=== PATIENT | female | born 1970 | race African-American/Black ===

== ENCOUNTER 2019-05-01 | Emergency (ER) | payer SELFPAY ==
[~2019-05-01] MED LIST: AMLODIPINE5 MG PO; ASPIRIN LOW DOS81 M2 PO; CALCIUM +D PO; LOSARTAN/HCT1 TA1 PO; MAGNESIUM-OX400 MG PO; METFORMIN500 MG PO; MULTI VIT PO; NALTREXONE50 MG PO; UNK BP MED; VITAMIN D50000 UN1 PO
[2019-05-01] MEDS ORDERED: OMEPRAZOLE DR40 MG PO (10:15)
[2019-05-01 11:51] LABS: ANION GAP 23 (6-22 (CALC)); BUN 11 mg/dL (7-17); BUN/CREATININE RATIO 25 (12-20 (CALC)); CARBON DIOXIDE 20 mmol/l (22-30); CHLORIDE 101 mmol/l (95-108); CREATININE 0.4 mg/dL (0.5-1.0); GFR > 60 ML/MIN (>=60 (CALC)); GFR FOR AFR.AMER. > 60 ML/MIN (>=60 (CALC)); POTASSIUM 4.3 mmol/l (3.5-5.1); SODIUM 140 mmol/l (137-146)
[2019-05-01 12:16] LABS: HEMATOCRIT 39.8 % (37.0-47.0); HEMOGLOBIN 13.2 g/dl (12.0-16.0); IMMATURE GRANULOCYTES 0.4 % (0.0-5.0); MEAN CELL VOLUME 94.1 fL CALC (80.0-100.0); MEAN CORPUSCULAR HGB 31.2 pG CALC (26.0-32.0); MEAN CORPUSCULAR HGB CONC 33.2 g/L CALC (32.0-36.0); NEUT# 3.81 thou/uL (2.00-7.15); RED BLOOD COUNT 4.23 mill/uL (4.20-5.60); RED CELL DISTRI WIDTH 13.5 % (11.5-15.5)
[2019-05-01] MEDS ORDERED: DOXYCYCL HYC100 M4 PO (13:18)
== END 2019-05-01 14:01 | disposition home or self-care (01) | DRG 156 ==
PROVIDERS: Family Medicine
PROC: 0HQ1XZZ Repair Face Skin, External Approach (ICD-10-PCS; principal; 2019-05-01)
DX: S02.2XXA Fracture of nasal bones, initial encounter for closed fracture (principal); S01.511A Laceration without foreign body of lip, initial encounter; R07.9 Chest pain, unspecified; I10 Essential (primary) hypertension; E11.40 Type 2 diabetes mellitus with diabetic neuropathy, unspecified; F17.210 Nicotine dependence, cigarettes, uncomplicated; W01.0XXA Fall on same level from slipping, tripping and stumbling without subsequent striking against object, initial encounter; Z79.84 Long term (current) use of oral hypoglycemic drugs

== ENCOUNTER 2019-06-21 09:19 | Inpatient (IN) | payer BC ==
[~2019-06-21] VITALS: Ht 177.8 cm; Wt 61.0 kg
[~2019-06-21 09:19] MED LIST changes: +DOXYCYCL HYC100 M4 PO; +OMEPRAZOLE DR40 MG PO
--- NOTE | 2019-06-21 09:23 | NUR ---
PT TO ROOM VIA [facility] FOR BEDSIDE TRIAGE.
--- NOTE | 2019-06-21 09:35 | NUR ---
PT REWTING STATES THAT SHE STARTED HAVING TROUBLE ABOUT A MONTH AGO AND IT CONTINUES SHE HAS HAD N/V WITH DIFFUSE ABD PAIN, STATES SHE HASN'T EATEN IN ABOUT 2 WEEKS, WITH C/O EMESIS AFTER EATING STATES HE TRIES TO DRINK WATER FREQUENTLY BUT EVEN THAT COMES UP SOMETIMES, CALL QUEEN WITHIN REACH, IV ACCESS OBTAINED AND LAB WORK DRAWN, WILL CONTINUE TO MONITOR.
[2019-06-21 10:05] LABS: HEMATOCRIT 35.6 % (37.0-47.0); HEMOGLOBIN 12.1 g/dl (12.0-16.0); IMMATURE GRANULOCYTES 0.5 % (0.0-5.0); MEAN CELL VOLUME 90.8 fL CALC (80.0-100.0); MEAN CORPUSCULAR HGB 30.9 pG CALC (26.0-32.0); NEUT# 4.17 thou/uL (2.00-7.15); RED BLOOD COUNT 3.92 mill/uL (4.20-5.60); RED CELL DISTRI WIDTH 13.4 % (11.5-15.5)
--- NOTE | 2019-06-21 10:13 | NUR ---
PT RESTING, IV ACCESS OBTAINED EARLIER, MEDICATED FOR NAUSEA ORDERED, WARM BLANKETS PROVIDED AND LIGHTS DIMMED PER PT REQUEST, CALL QUEEN IN HAND, WILL CONTINUE TO MONITOR.
[2019-06-21 10:36] LABS: ALBUMIN 4.6 g/dL (3.2-5.0); BUN 26 mg/dL (7-17); BUN/CREATININE RATIO 36 (12-20 (CALC)); CREATININE 0.7 mg/dL (0.5-1.0); GFR > 60 ML/MIN (>=60 (CALC)); GFR FOR AFR.AMER. > 60 ML/MIN (>=60 (CALC)); LIPASE 1000 u/l (23-300); SODIUM 134 mmol/l (137-146); TOTAL PROTEIN 7.8 g/dL (6.3-8.2)
[2019-06-21 10:43] LABS: ALKALINE PHOSPHATASE 122 u/l (38-126); ANION GAP 24 (6-22 (CALC)); CARBON DIOXIDE 25 mmol/l (22-30); CHLORIDE 88 mmol/l (95-108); POTASSIUM 3.4 mmol/l (3.5-5.1); SGOT/AST 183 u/l (14-36)
[2019-06-21 10:49] LABS: URINE BLOOD DIPSTICK NEGATIVE (NEGATIVE); URINE COLOR YELLOW; URINE GLUCOSE - DIPSTICK NEGATIVE (NEGATIVE); URINE KETONE >=80 mg/dL (NEGATIVE); URINE LEUK ESTERASE NEGATIVE (NEGATIVE); URINE NITRITE - DIPSTICK NEGATIVE (Negative); URINE PROTEIN - DIPSTICK 100 mg/dL (NEG-TRACE); URINE SPECIFIC GRAVITY >=1.030
[2019-06-21 10:54] LABS: URINE BILIRUBIN - DIPSTICK MODERATE (NEGATIVE)
[2019-06-21 11:04] LABS: URINE SQUAMOUS EPITHELIAL CELL FEW EPI/hpf (0-FEW)
--- NOTE | 2019-06-21 11:32 | NUR ---
PT AMBULATORY TO BATHROOM TO PROVIDE URINE. STATES PAIN TO LUQ,
--- NOTE | 2019-06-21 12:18 | NUR ---
INITIATED IVF, PT TOLERATING WELL. VSS. EDP UPDATED ON PAIN.
--- NOTE | 2019-06-21 13:18 | NUR ---
PT RESTING MORE COMFORTABLE IN NO DISTRESS. VSS. DENIES NAUSEA
--- NOTE | 2019-06-21 14:30 | NUR ---
PT SITTING UP TALKING TO SPOUSE AT BEDSIDE, PT IN NO DISTRESS.
--- NOTE | 2019-06-21 14:49 | NUR ---
PT TRANSPORTED TO [place] VIA WC IN NO DISTRESS
[2019-06-21 15:05] VITALS: BP 135/84
--- NOTE | 2019-06-21 15:30 | NUR ---
REPORT RECEIVED FROM KENNETH IN ED, PT ARRIVED ON UNIT @ 1510 VIA WC AND TRANSFERRED TO BED, ALERT AND ORIENTED X 4, C/O ABD PAIN @ 07/14. ORIENTED TO ROOM AND CALL QUEEN, SETTLED IN BED, WILL CONTINUE TO MONITOR.
[2019-06-21 18:27] VITALS: BP 124/77
--- NOTE | 2019-06-21 19:28 | NUR ---
REPORT FROM CLAUDIA CLAY. PT RESTING IN BED. NO APPARENT DISTRESS NOTED. PT STATES ABD PAIN STILL PRESENT. DENIES ANY NAUSEA AT THIS TIME. IV TO LAC WITH IV FLUIDS INFUSING. PT DENIES ANY CURRENT WANTS OR NEEDS. DISCUSSED POC. PT VERBALIZED UNDERSTANDING. CALL LIGHT WITHIN REACH. WILL CONTINUE TO MONITOR.
--- NOTE | 2019-06-21 23:52 | NUR ---
PT RESTING IN BED WATCHING TV. PT DENIES ANY PAIN OR DISCOMFORT. NO APPARENT DISTRESS NOTED. REMAINS NPO. IV FLUIDS INFUSING WITHOUT DIFFICULTY. CALL LIGHT WITHIN REACH. WILL CONTINUE TO MONITOR.
[2019-06-22 03:27] VITALS: BP 144/86
--- NOTE | 2019-06-22 03:30 | NUR ---
PT RESTING IN BED WITH EYES CLOSED. NO APPARENT DISTRESS NOTED. PT DENIES ANY PAIN OR DISCOMFORT AT THIS TIME. CALL LIGHT WITHIN REACH. WILL CONTINUE TO MONITOR.
[2019-06-22 05:12] LABS: HEMOGLOBIN 11.8 g/dl (12.0-16.0); IMMATURE GRANULOCYTES 0.2 % (0.0-5.0); MEAN CELL VOLUME 93.3 fL CALC (80.0-100.0); MEAN CORPUSCULAR HGB 30.6 pG CALC (26.0-32.0); MEAN CORPUSCULAR HGB CONC 32.8 g/dL CAL (32.0-36.0); NEUT# 2.98 thou/uL (2.00-7.15); RED BLOOD COUNT 3.86 mill/uL (4.20-5.60); RED CELL DISTRI WIDTH 13.4 % (11.5-15.5)
[2019-06-22 05:41] LABS: ALKALINE PHOSPHATASE 92 u/l (38-126); BILIRUBIN, TOTAL 0.9 mg/dL (0.0-1.4); BUN 19 mg/dL (7-17); BUN/CREATININE RATIO 38 (12-20 (CALC)); CARBON DIOXIDE 21 mmol/l (22-30); CREATININE 0.5 mg/dL (0.5-1.0); GFR > 60 ML/MIN (>=60 (CALC)); GFR FOR AFR.AMER. > 60 ML/MIN (>=60 (CALC)); LIPASE 945 u/l (23-300); POTASSIUM 3.3 mmol/l (3.5-5.1); SGOT/AST 163 u/l (14-36); SODIUM 137 mmol/l (137-146); TOTAL PROTEIN 6.3 g/dL (6.3-8.2)
[2019-06-22 05:42] LABS: ALBUMIN 3.6 g/dL (3.2-5.0); ANION GAP 18 (6-22 (CALC)); CHLORIDE 101 mmol/l (95-108)
[2019-06-22 08:00] VITALS: BP 132/78
--- NOTE | 2019-06-22 09:00 | NUR ---
PT SEEN AWAKE, ALERT, ORIENTED X 3. LUNGS CLEAR, RA. ABDOMEN TENDER, LAST BM ON 15, BUT PT STATES LITTLE INTAKE IN PAST FEW DAYS. BOWEL SOUNDS HYPOACTIVE. PT REMAINS NPO.
--- NOTE | 2019-06-22 12:00 | NUR ---
PT RECEIVED MAGNESIUM THIS MORNING PER LEVEL OF 1.1. ALSO, POTASSIUM 40 MEQ PROVIDED PO. PT SEEN BY DR SMART, WILL HAVE U/S ABDOMEN IN AM. NO DISTRESS NOTED, NO COMPLAINTS HEARD.
[2019-06-22 16:00] VITALS: BP 122/79
--- NOTE | 2019-06-22 19:00 | NUR ---
REPORT FROM PRABHAKAR CLAY. PT RESTING IN BED. NO APPARENT DISTRESS NOTED. PT DENIES ANY PAIN OR NAUSEA AT THIS TIME. IV TO LAC WITH IV FLUIDS INFUSING. PT DENIES ANY CURRENT WANTS OR NEEDS. DISCUSSED POC. PT VERBALIZED UNDERSTANDING. CALL LIGHT WITHIN REACH. WILL CONTINUE TO MONITOR.
[2019-06-22 19:21] VITALS: BP 130/82
--- NOTE | 2019-06-22 19:45 | NUR ---
PT UNHOOKED FROM IV FLUIDS AND IV SITE COVERED AND PT SET UP FOR SHOWER. PT INSTRUCTED TO CALL FOR ASSISTANCE IF NEEDED.
--- NOTE | 2019-06-23 00:03 | NUR ---
PT RESTING IN BED WITH EYES CLOSED. WAKES EASILY. NO APPARENT DISTRESS NOTED. PT DENIES ANY PAIN OR NAUSEA. NPO AT THIS TIME. CALL LIGHT WITHIN REACH. WILL CONTINUE TO MONITOR.
--- NOTE | 2019-06-23 04:25 | NUR ---
PT RESTING IN BED WITH EYES CLOSED. NO APPARENT DISTRESS NOTED. CALL LIGHT WITHIN REACH. WILL CONTINUE TO MONITOR.
[2019-06-23 05:03] VITALS: BP 143/85
[2019-06-23 05:18] LABS: HEMATOCRIT 32.2 % (37.0-47.0); HEMOGLOBIN 10.7 g/dl (12.0-16.0); MEAN CELL VOLUME 92.5 fL CALC (80.0-100.0); MEAN CORPUSCULAR HGB 30.7 pG CALC (26.0-32.0); MEAN CORPUSCULAR HGB CONC 33.2 g/dL CAL (32.0-36.0); RED BLOOD COUNT 3.48 mill/uL (4.20-5.60); RED CELL DISTRI WIDTH 13.4 % (11.5-15.5)
[2019-06-23 05:27] LABS: ALKALINE PHOSPHATASE 79 u/l (38-126); ANION GAP 10 (6-22 (CALC)); BILIRUBIN, TOTAL 0.7 mg/dL (0.0-1.4); BUN 10 mg/dL (7-17); BUN/CREATININE RATIO 21 (12-20 (CALC)); CARBON DIOXIDE 23 mmol/l (22-30); CHLORIDE 106 mmol/l (95-108); CREATININE 0.5 mg/dL (0.5-1.0); GFR > 60 ML/MIN (>=60 (CALC)); GFR FOR AFR.AMER. > 60 ML/MIN (>=60 (CALC)); MAGNESIUM 1.2 mg/dL (1.6-2.3); POTASSIUM 3.5 mmol/l (3.5-5.1); SGOT/AST 127 u/l (14-36); SODIUM 136 mmol/l (137-146); TOTAL PROTEIN 5.8 g/dL (6.3-8.2)
[2019-06-23 08:00] VITALS: BP 139/89
--- NOTE | 2019-06-23 09:00 | NUR ---
PT AWAKE, ALERT, ORIENTED X 3. PT DOES HAVE CONTINUED NAUSEA, MEDICATED WITH ZOFRAN THIS MORNING. LUNGS CLEAR, RA. ABDOMEN TENDER TO RUQ. PEDAL EDEMA NOTED AT 1+, PALPABLE PULSES.
--- NOTE | 2019-06-23 13:00 | NUR ---
PT TO U/S AT THIS TIME. PT CONTINUES WITH IVF AND ALSO NOW WITH MAGNESIUM BOLUS. PT WITHOUT COMPLAINTS SHE RESTS IN THE BED.
[2019-06-23 15:15] VITALS: BP 130/85
--- NOTE | 2019-06-23 17:30 | NUR ---
PT HAS BEEN TO ULTRASOUND AND BACK WITHOUT INCIDENT. PT HAS HAD UNEVENTFUL AFTERNOON, AT REST IN THE BED, NO ACUTE DISTRESS.
--- NOTE | 2019-06-23 19:35 | NUR ---
REPORT FROM PRABHAKAR CLAY. PT RESTING IN BED. NO APPARENT DISTRESS NOTED. PT C/O ABD AND BACK PAIN 5/10 AND NAUSEA. IV TO LAC WITH IV FLUIDS INFUSING. PT DENIES ANY CURRENT WANTS OR NEEDS. DISCUSSED POC. PT VERBALIZED UNDERSTANDING. WILL MEDICATE ORDERED. CALL LIGHT WITHIN REACH. WILL CONTINUE TO MONITOR.
[2019-06-23 19:42] VITALS: BP 143/92
--- NOTE | 2019-06-23 23:39 | NUR ---
PT RESTING IN BED WITH EYES CLOSED. NO APPARENT DISTRESS NOTED. CALL LIGHT WITHIN REACH. WILL CONTINUE TO MONITOR.
--- NOTE | 2019-06-24 03:58 | NUR ---
PT RESTING IN BED WITH EYES CLOSED. NO APPARENT DISTRESS NOTED. CALL LIGHT WITHIN REACH. WILL CONTINUE TO MONITOR.
[2019-06-24 04:31] VITALS: BP 144/90
[2019-06-24 05:13] LABS: HEMATOCRIT 31.3 % (37.0-47.0); HEMOGLOBIN 10.5 g/dl (12.0-16.0); IMMATURE GRANULOCYTES 0.4 % (0.0-5.0); MEAN CELL VOLUME 91.8 fL CALC (80.0-100.0); MEAN CORPUSCULAR HGB 30.8 pG CALC (26.0-32.0); MEAN CORPUSCULAR HGB CONC 33.5 g/dL CAL (32.0-36.0); NEUT# 3.55 thou/uL (2.00-7.15); RED BLOOD COUNT 3.41 mill/uL (4.20-5.60); RED CELL DISTRI WIDTH 13.3 % (11.5-15.5)
[2019-06-24 05:29] LABS: ALBUMIN 3.1 g/dL (3.2-5.0); ALKALINE PHOSPHATASE 82 u/l (38-126); ANION GAP 13 (6-22 (CALC)); BILIRUBIN, TOTAL 0.6 mg/dL (0.0-1.4); BUN 5 mg/dL (7-17); BUN/CREATININE RATIO 10 (12-20 (CALC)); CALCULATED LDLCHOLESTEROL 73 mg/dL (62-129 (CALC)); CARBON DIOXIDE 21 mmol/l (22-30); CHLORIDE 104 mmol/l (95-108); CHOLESTEROL HDL RATIO 2.5 (<4.4 (CALC)); CREATININE 0.5 mg/dL (0.5-1.0); GFR > 60 ML/MIN (>=60 (CALC)); GFR FOR AFR.AMER. > 60 ML/MIN (>=60 (CALC)); HDL CHOLESTEROL 61 mg/dL (>=40); LIPASE 373 u/l (23-300); MAGNESIUM 1.3 mg/dL (1.6-2.3); POTASSIUM 3.1 mmol/l (3.5-5.1); SGOT/AST 109 u/l (14-36); SODIUM 136 mmol/l (137-146); TOTAL CHOLESTEROL 150 mg/dl (0-199); TOTAL PROTEIN 5.8 g/dL (6.3-8.2); TOTAL TRIGLYCERIDES 83 mg/dl (30-149); VLDL CHOLESTROL 17 mg/dl (1-41 (CALC))
[2019-06-24 08:00] VITALS: BP 134/92
--- NOTE | 2019-06-24 09:00 | NUR ---
PT AWAKE, ALERT, DID NOT EAT MUCH BREAKFAST PER NOT WHAT SHE ORDERED. IV INFILTRATED, TO RESTART.
--- NOTE | 2019-06-24 12:22 | NUR ---
NEW IV STARTED RAC BY JM CLAY, IV INFUSES NORMALLY. PT STATES THAT SHE STILL FEELS A BIT QUEASY, EMESIS BAG PROVIDED.
[2019-06-24 15:28] VITALS: BP 116/76
--- NOTE | 2019-06-24 18:06 | NUR ---
PT CONTINUES AMBULATORY IN ROOM WITHOUT ASSIST, NO PAIN ISSUES ALTHOUGH ABDOMEN IS TENDER. NO DISTRESS NOTED.
[2019-06-24 18:49] VITALS: BP 132/82
--- NOTE | 2019-06-24 19:01 | NUR ---
REPORT FROM PRABHAKAR CLAY. PT RESTING IN BED. NO APPARENT DISTRESS NOTED. PT C/O ABD AND BACK PAIN 4/10 AND NAUSEA. IV TO RAC WITH IV FLUIDS INFUSING. PT DENIES ANY CURRENT WANTS OR NEEDS. DISCUSSED POC. PT VERBALIZED UNDERSTANDING. WILL MEDICATE ORDERED. CALL LIGHT WITHIN REACH. WILL CONTINUE TO MONITOR.
--- NOTE | 2019-06-24 23:15 | NUR ---
PT RESTING IN BED WITH EYES CLOSED. NO APPARENT DISTRESS NOTED. CALL LIGHT WITHIN REACH. WILL CONTINUE TO MONITOR.
[2019-06-25 04:56] LABS: HEMATOCRIT 29.9 % (37.0-47.0); HEMOGLOBIN 10.3 g/dl (12.0-16.0); MEAN CELL VOLUME 90.1 fL CALC (80.0-100.0); MEAN CORPUSCULAR HGB CONC 34.4 g/dL CAL (32.0-36.0); RED BLOOD COUNT 3.32 mill/uL (4.20-5.60); RED CELL DISTRI WIDTH 13.5 % (11.5-15.5)
[2019-06-25 05:11] VITALS: BP 135/79
[2019-06-25 05:11] LABS: ALBUMIN 2.9 g/dL (3.2-5.0); ALKALINE PHOSPHATASE 85 u/l (38-126); ANION GAP 10 (6-22 (CALC)); BILIRUBIN, TOTAL 0.5 mg/dL (0.0-1.4); BUN 3 mg/dL (7-17); BUN/CREATININE RATIO 6 (12-20 (CALC)); CARBON DIOXIDE 24 mmol/l (22-30); CHLORIDE 105 mmol/l (95-108); CREATININE 0.5 mg/dL (0.5-1.0); GFR > 60 ML/MIN (>=60 (CALC)); GFR FOR AFR.AMER. > 60 ML/MIN (>=60 (CALC)); LIPASE 303 u/l (23-300); MAGNESIUM 1.4 mg/dL (1.6-2.3); POTASSIUM 2.9 mmol/l (3.5-5.1); SGOT/AST 90 u/l (14-36); SODIUM 136 mmol/l (137-146); TOTAL PROTEIN 5.4 g/dL (6.3-8.2)
--- NOTE | 2019-06-25 07:00 | NUR ---
REPORT RECEIVED FROM CARLINE MELGAR;PT APPEARS TO BE SLEEPING IN SUPINE POSITION;NO S/S OF DISTRESS NOTED;RESPIRATIONS APPEAR EVEN AND UNLABORED ON RA;IV FLUIDS INFUSING WITH EASE PER ORDER;ALL SAFETY PRECAUTIONS IN PLACE WITH BED IN THE LOWEST POSITION AND CALL LIGHT IN REACH;WILL CONTINUE TO MONITOR
[2019-06-25 08:39] VITALS: BP 132/87
--- NOTE | 2019-06-25 09:00 | NUR ---
PT RESTING IN SEMI FOWLERS POSITION,A&O X3;VS OBTAINED AND ASSESSMENT COMPLETED;PT REPORTS ABDOMINAL PAIN RATING 4/10 ON THE PAIN SCALE AND PT ALSO VOMITED 100CC OF CLEAR FLUID;MORPHINE 2MG AND ZOFRAN 4MG IVP ADMINISTERED AT THIS TIME;RESPIRATIONS EVEN AND UNLABORED ON RA,DIMINISHED/CRACKLED LUNG SOUNDS NOTED;I.S. PROVIDED AND PT INSTRUCTED ON USAGE,GOAL 100;ABDOMEN SOFT ON PALPATION AND ACTIVE IN ALL 4 QUADRANTS;STRONG PEDAL PULSES WITH TRACE EDEMA NOTED TO BLE,ENCOURAGED ELEVATION;#22G TO RAC INFUSING NS PER ORDER,SITE APPEARS HEALTHY;ACCUCHECK 109, NO COVERAGE NEEDED;PT DENIES ANY ADDITIONAL NEEDS AT THIS TIME AND IS ENCOURAGED TO CALL FOR ASSISTANCE IF NEEDED;CALL LIGHT IN REACH;WILL CONTINUE TO MONITOR
--- NOTE | 2019-06-25 11:18 | NUR ---
PT TRANSPORTED TO [facility] IN STABLE CONDITION VIA WHEELCHAIR ACCOMPANIED BY DEBORAH DURAN.
--- NOTE | 2019-06-25 11:35 | NUR ---
PT RETURNED BACK TO MED/SURG ROOM 268 IN STABLE CONDITION VIA WHEELCHAIR ACCOMPANIED BY DEBORAH DURAN;PT RE-POSITIONED INTO BED WITH A STEADY GAIT;RESPIRATIONS EVEN AND UNLABORED ON RA;PT REPORTS THAT NAUSEA HAS SUBSIDED SINCE COMPAZINE ADMINISTRATION;IV FLUIDS INFUSING WITH EASE PER ORDER;PT DEIT CHANGED TO FULL LIQUID AND PT VERBALIZES UNDERSTANDING;ASSESSMENT REMAINS UNCHANGED AT THIS TIME;ENCOURAGED TO CALL FOR ASSISTANCE IF NEEDED;CALL LIGHT IN REACH;WILL CONTINUE TO MONITOR
--- NOTE | 2019-06-25 15:15 | NUR ---
PT APPEARS TO BE SLEEPING IN SEMI FOWLERS POSITION;NO S/S OF DISTRESS NOTED;RESPIRATIONS EVEN AND UNLABORED ON RA;IV FLUIDS INFUSING WITH EASE PER ORDER;ALL SAEFTY PRECAUTIONS REMAIN IN PLACE WITH BED IN THE LOWEST POSITION AND CALL LIGHT IN REACH;WILL CONTINUE TO MONITOR
[2019-06-25 15:38] VITALS: BP 116/76
[2019-06-25 18:16] LABS: ALKALINE PHOSPHATASE 112 u/l (38-126); BILIRUBIN, TOTAL 0.7 mg/dL (0.0-1.4); BUN 2 mg/dL (7-17); BUN/CREATININE RATIO 5 (12-20 (CALC)); CARBON DIOXIDE 22 mmol/l (22-30); CHLORIDE 104 mmol/l (95-108); CREATININE 0.5 mg/dL (0.5-1.0); GFR > 60 ML/MIN (>=60 (CALC)); GFR FOR AFR.AMER. > 60 ML/MIN (>=60 (CALC)); SGOT/AST 119 u/l (14-36); SODIUM 137 mmol/l (137-146)
[2019-06-25 18:20] LABS: ALBUMIN 3.8 g/dL (3.2-5.0); ANION GAP 15 (6-22 (CALC)); MAGNESIUM 1.9 mg/dL (1.6-2.3); POTASSIUM 3.5 mmol/l (3.5-5.1); TOTAL PROTEIN 6.9 g/dL (6.3-8.2)
[2019-06-25 18:31] VITALS: BP 114/77
--- NOTE | 2019-06-25 19:30 | NUR ---
PATIENT RESTING IN BED AT THIS TIME-AWAKE ALERT AND ORIENTEDX3. PATIENT WITH NO COMPLAINTS AT THIS TIME. IVF NS PATENT AND INFUSING AT 50CC/HR VIA LEFT AC SITE. SITE IS HEALTHY AT THIS TIME. SAFETY PRECAUTIONS REINFORCED. CALL LIGHT IN REACH. WILL CONT TO MONITOR.
--- NOTE | 2019-06-25 21:00 | NUR ---
ACCU-CHECK IS 124-NO COVERAGE NEEDED. NO COMPLAINTS AT THIS TIME. CALL LIGHT IN REACH. WILL CONT TO MONITOR.
--- NOTE | 2019-06-26 00:01 | NUR ---
PATIENT RESTING IN BED AT THIS TIME-AWAKE ALERT AND C/O ABD PAIN AND NAUSEA. MEDICATED WITH MORPHINE 2MG IVP FOR PAIN AND WITH COMPAZINE 5MG IVP FOR NAUSEA. PROVIDED WITH ICE CHIPS PER REQUEST. NOT TAKING MUCH PO OTHER THAN H2O. SAFETY PRECAUTIONS REINFORCED. CALL LIGHT IN REACH. WILL CONT TO MONITOR.
[2019-06-26 03:39] VITALS: BP 125/78
--- NOTE | 2019-06-26 04:21 | NUR ---
PATIENT RESTING IN BED AT THIS TIME-APPEARS SLEEPING WITH EYES CLOSED. RESPS ARE EVEN AND UNLABORED. IVF NS PATENT AND INFUSING VIA RIGHT AC SITE AT 50CC/HR. CALL LIGHT IN REACH. WILL CONT TO MONITOR.
[2019-06-26 05:11] LABS: HEMATOCRIT 29.1 % (37.0-47.0); HEMOGLOBIN 9.9 g/dl (12.0-16.0); IMMATURE GRANULOCYTES 0.4 % (0.0-5.0); MEAN CELL VOLUME 90.1 fL CALC (80.0-100.0); MEAN CORPUSCULAR HGB 30.7 pG CALC (26.0-32.0); NEUT# 3.37 thou/uL (2.00-7.15); RED BLOOD COUNT 3.23 mill/uL (4.20-5.60); RED CELL DISTRI WIDTH 13.6 % (11.5-15.5)
[2019-06-26 05:26] LABS: ALKALINE PHOSPHATASE 79 u/l (38-126); ANION GAP 10 (6-22 (CALC)); BILIRUBIN, TOTAL 0.5 mg/dL (0.0-1.4); BUN 3 mg/dL (7-17); BUN/CREATININE RATIO 5 (12-20 (CALC)); CARBON DIOXIDE 23 mmol/l (22-30); CHLORIDE 107 mmol/l (95-108); CREATININE 0.5 mg/dL (0.5-1.0); GFR > 60 ML/MIN (>=60 (CALC)); GFR FOR AFR.AMER. > 60 ML/MIN (>=60 (CALC)); POTASSIUM 3.3 mmol/l (3.5-5.1); SGOT/AST 81 u/l (14-36); SODIUM 136 mmol/l (137-146)
[2019-06-26 05:29] LABS: ALBUMIN 2.7 g/dL (3.2-5.0); TOTAL PROTEIN 5.2 g/dL (6.3-8.2)
[2019-06-26 05:30] LABS: MAGNESIUM 1.3 mg/dL (1.6-2.3)
--- NOTE | 2019-06-26 07:30 | NUR ---
ATTEMPTED TOTAL OF 6 TIMES TO GET AN IV SITE OBTAINED NO SUCCESS. ELENITA OCONNOR AND DR ORLANDO IS AWARE.
[2019-06-26] MEDS ORDERED: MAG OXIDE400 MG PO (09:14)
[2019-06-26 09:15] VITALS: BP 138/89
[2019-06-26] MEDS ORDERED: COMPAZINE10 MG PO (09:15)
--- NOTE | 2019-06-26 09:15 | NUR ---
ASSESSMENT IS COMPLETED; NO IV SITE. HR IS REG, PULSES ARE STRONG X4, ABD IS SOFT WITH ACTIVE BS. BREATH SOUNDS ARE CLEAR,BILATERALLY, CONTINUE TO OBSERVE AND MONITOR.
[2019-06-26 09:18] VITALS: BP 138/89
--- NOTE | 2019-06-26 11:14 | NUR ---
DISCHARGE INSTRUCTIONS GIVEN TO PT AND VERBALIZED UNDERSTANDING. NO IV SITE . FAMILY DOWNSTAIRS. Discharge instructions given. Patient verbalizes understanding of same. Discharged in stable condition via Wheelchair to Home with family. All belongings sent with pt.
== END 2019-06-26 11:14 | disposition home or self-care (01) | DRG 439 ==
LOC: ED 09:19 → ED-I 12:26 → ED 12:42 → MS2 12:43 → ED-I 12:43 → MS2 13:07
PROVIDERS: Family Medicine; Nurse Practitioner Family; ADMIT Internal Medicine; ATTEND Internal Medicine
DX: K85.20 Alcohol induced acute pancreatitis without necrosis or infection (principal); K92.0 Hematemesis; K92.1 Melena; F10.10 Alcohol abuse, uncomplicated; K70.0 Alcoholic fatty liver; E83.42 Hypomagnesemia; E87.6 Hypokalemia; I10 Essential (primary) hypertension; E11.40 Type 2 diabetes mellitus with diabetic neuropathy, unspecified; K21.9 Gastro-esophageal reflux disease without esophagitis; F17.200 Nicotine dependence, unspecified, uncomplicated; Z79.84 Long term (current) use of oral hypoglycemic drugs
CPT/HCPCS: J3475; Q9967

== ENCOUNTER 2019-08-02 09:15 | Emergency (ER) | payer BC ==
[~2019-08-02 09:15] MED LIST changes: +COMPAZINE10 MG PO; +MAG OXIDE400 MG PO
[2019-08-02 09:49] LABS: GFR > 60 ML/MIN (>=60 (CALC)); GFR FOR AFR.AMER. > 60 ML/MIN (>=60 (CALC)); HEMATOCRIT 36.4 % (37.0-47.0); IMMATURE GRANULOCYTES 0.2 % (0.0-5.0); NEUT# 2.61 thou/uL (2.00-7.15)
[2019-08-02 10:25] LABS: ALBUMIN 4.2 g/dL (3.2-5.0); ALKALINE PHOSPHATASE 70 u/l (38-126); BUN 19 mg/dL (7-17); BUN/CREATININE RATIO 31 (12-20 (CALC)); CHLORIDE 98 mmol/l (95-108); CREATININE 0.6 mg/dL (0.5-1.0); GFR > 60 ML/MIN (>=60 (CALC)); GFR FOR AFR.AMER. > 60 ML/MIN (>=60 (CALC)); LIPASE 75 u/l (23-300); POTASSIUM 3.7 mmol/l (3.5-5.1); SGOT/AST 55 u/l (14-36); SODIUM 135 mmol/l (137-146); TOTAL PROTEIN 7.7 g/dL (6.3-8.2)
[2019-08-02 10:33] LABS: ANION GAP 18 (6-22 (CALC)); CARBON DIOXIDE 23 mmol/l (22-30)
[2019-08-02 15:57] VITALS: BP 140/82
== END 2019-08-02 15:58 | disposition short-term general hospital (02) | DRG 96 ==
LOC: ED 09:15
PROVIDERS: Family Medicine
PROC: 009U3ZX Drainage of Spinal Canal, Percutaneous Approach, Diagnostic (ICD-10-PCS; principal; 2019-08-02)
PROC: B01BZZZ Fluoroscopy of Spinal Cord (ICD-10-PCS; 2019-08-02)
PROC: 00JU3ZZ Inspection of Spinal Canal, Percutaneous Approach (ICD-10-PCS; 2019-08-02)
DX: G61.0 Guillain-Barre syndrome (principal); I10 Essential (primary) hypertension; E11.9 Type 2 diabetes mellitus without complications; Z79.84 Long term (current) use of oral hypoglycemic drugs; Z20.828 Contact with and (suspected) exposure to other viral communicable diseases
CPT/HCPCS: Q9967

== ENCOUNTER 2020-03-21 04:48 | Emergency (ER) | payer OTHER ==
[~2020-03-21] VITALS: Ht 167.6 cm; Wt 61.4 kg
[2020-03-21] MEDS ORDERED: TRAMADOL HCL50 MG PO (06:17)
[2020-03-21 07:04] VITALS: BP 110/56
== END 2020-03-21 07:09 | disposition home or self-care (01) | DRG 563 ==
LOC: ED 04:48
PROC: 2W3QX1Z Immobilization of Right Lower Leg using Splint (ICD-10-PCS; principal; 2020-03-21)
DX: S82.891A Other fracture of right lower leg, initial encounter for closed fracture (principal); I10 Essential (primary) hypertension; E11.9 Type 2 diabetes mellitus without complications; F17.200 Nicotine dependence, unspecified, uncomplicated; X50.0XXA Overexertion from strenuous movement or load, initial encounter; Y92.009 Unspecified place in unspecified non-institutional (private) residence as the place of occurrence of the external cause; Z79.84 Long term (current) use of oral hypoglycemic drugs

== ENCOUNTER 2020-04-14 07:12 | Day surgery (SDC) | payer OTHER ==
[~2020-04-14] VITALS: Ht 167.6 cm; Wt 59.0 kg
[~2020-04-14 07:12] MED LIST changes: +BACLOFEN10 MG PO; +FOLIC ACID1 MG PO; +GABAPENTIN100 MG PO; +LOSARTAN POTASS50 MG PO; +METFORMIN500 M2 PO; +TRAMADOL HCL50 MG PO; +VITAMIN B-1100 M1 PO; +VITAMIN D2000 UNI1 PO
[2020-04-14 07:32] LABS: HCG SERUM/URINE (NEG/POS) NEGATIVE (NEGATIVE)
[2020-04-14] MEDS ORDERED: PERCOCET 10/31 COMBO PO (12:58)
[2020-04-14 14:14] VITALS: BP 119/72
== END 2020-04-14 14:38 | disposition home or self-care (01) | DRG 493 ==
LOC: ORM 07:12
PROVIDERS: ATTEND Orthopaedic Surgery
PROC: 0QSJ04Z Reposition Right Fibula with Internal Fixation Device, Open Approach (ICD-10-PCS; principal; 2020-04-14)
PROC: 0QSG04Z Reposition Right Tibia with Internal Fixation Device, Open Approach (ICD-10-PCS; 2020-04-14)
DX: S82.841A Displaced bimalleolar fracture of right lower leg, initial encounter for closed fracture (principal); G61.0 Guillain-Barre syndrome; E11.9 Type 2 diabetes mellitus without complications; I10 Essential (primary) hypertension; F17.200 Nicotine dependence, unspecified, uncomplicated; W18.39XA Other fall on same level, initial encounter; Z20.822 Contact with and (suspected) exposure to COVID-19
CPT/HCPCS: J0131

== ENCOUNTER 2020-06-03 11:12 | Observation (INO) | payer OTHER, MEDICAID ==
[~2020-06-03] VITALS: Ht 167.6 cm; Wt 78.0 kg
[~2020-06-03 11:12] MED LIST changes: +PERCOCET 10/31 COMBO PO
[2020-06-03 11:44] LABS: HEMATOCRIT 34.4 % (37.0-47.0); HEMOGLOBIN 10.4 g/dl (12.0-16.0); IMMATURE GRANULOCYTES 0.3 % (0.0-5.0); MEAN CELL VOLUME 97.5 fL CALC (80.0-100.0); MEAN CORPUSCULAR HGB 29.5 pG CALC (26.0-32.0); MEAN CORPUSCULAR HGB CONC 30.2 g/dL CAL (32.0-36.0); NEUT# 5.76 thou/uL (2.00-7.15); RED BLOOD COUNT 3.53 mill/uL (4.20-5.60); RED CELL DISTRI WIDTH 15.8 % (11.5-15.5)
[2020-06-03 12:00] LABS: ALBUMIN 4.4 g/dL (3.2-5.0); ALKALINE PHOSPHATASE 75 u/l (38-126); ANION GAP 12 (6-22 (CALC)); BILIRUBIN, TOTAL 0.6 mg/dL (0.0-1.4); BUN 20 mg/dL (7-17); BUN/CREATININE RATIO 30 (12-20 (CALC)); CARBON DIOXIDE 27 mmol/l (22-30); CHLORIDE 103 mmol/l (95-108); CREATININE 0.7 mg/dL (0.5-1.0); GFR > 60 ML/MIN (>=60 (CALC)); GFR FOR AFR.AMER. > 60 ML/MIN (>=60 (CALC)); LIPASE 69 u/l (23-300); POTASSIUM 4.6 mmol/l (3.5-5.1); SODIUM 137 mmol/l (137-146); TOTAL PROTEIN 7.6 g/dL (6.3-8.2)
[2020-06-03 12:05] LABS: SGOT/AST 29 u/l (14-36)
[2020-06-03] MEDS ORDERED: LANTUS SOL100 UNIT/M SC (15:18)
[2020-06-03] MEDS ORDERED: BACLOFEN20 MG PO (15:18)
[2020-06-03] MEDS ORDERED: LOSARTAN POTASS50 MG PO (15:18)
[2020-06-03] MEDS ORDERED: PREDNISONE10 MG PO (15:19)
[2020-06-03] MEDS ORDERED: OMEPRAZOLE DR40 MG PO (15:19)
[2020-06-03] MEDS ORDERED: MAXZIDE-2537.5 MG/TA PO (15:19)
[2020-06-03] MEDS ORDERED: METFORMIN500 M2 PO (15:19)
[2020-06-03 15:20] VITALS: BP 137/73
[2020-06-03] MEDS ORDERED: LIPITOR20 M1 PO (15:20)
[2020-06-03] MEDS ORDERED: NOVOLIN R100 UNIT/1 SC ×3 (15:40)
[2020-06-03 16:00] VITALS: BP 137/73
[2020-06-03 17:00] VITALS: BP 121/64
[2020-06-03 19:40] VITALS: BP 121/67
[2020-06-03 22:00] VITALS: BP 124/72
[2020-06-04] VITALS (14 sets, daily range): BP systolic 112–174; BP diastolic 64–86
[2020-06-04 06:38] LABS: HEMATOCRIT 30.1 % (37.0-47.0); HEMOGLOBIN 9.3 g/dl (12.0-16.0); MEAN CELL VOLUME 95.3 fL CALC (80.0-100.0); MEAN CORPUSCULAR HGB 29.4 pG CALC (26.0-32.0); MEAN CORPUSCULAR HGB CONC 30.9 g/dL CAL (32.0-36.0); RED BLOOD COUNT 3.16 mill/uL (4.20-5.60); RED CELL DISTRI WIDTH 15.6 % (11.5-15.5)
[2020-06-04 07:33] LABS: ANION GAP 6 (6-22 (CALC)); BUN 15 mg/dL (7-17); BUN/CREATININE RATIO 22 (12-20 (CALC)); CARBON DIOXIDE 29 mmol/l (22-30); CHLORIDE 105 mmol/l (95-108); CREATININE 0.7 mg/dL (0.5-1.0); GFR > 60 ML/MIN (>=60 (CALC)); GFR FOR AFR.AMER. > 60 ML/MIN (>=60 (CALC)); POTASSIUM 4.2 mmol/l (3.5-5.1); SODIUM 135 mmol/l (137-146)
[2020-06-04 09:29] LABS: URINE BILIRUBIN - DIPSTICK NEGATIVE (NEGATIVE); URINE BLOOD DIPSTICK NEGATIVE (NEGATIVE); URINE COLOR YELLOW; URINE GLUCOSE - DIPSTICK NEGATIVE (NEGATIVE); URINE KETONE NEGATIVE (NEGATIVE); URINE LEUK ESTERASE NEGATIVE (NEGATIVE); URINE NITRITE - DIPSTICK NEGATIVE (Negative); URINE PROTEIN - DIPSTICK NEGATIVE (NEG-TRACE); URINE UROBILINOGEN - DIPSTICK 0.2 E.U./dL (0.2)
[2020-06-05] VITALS: BP 117/72
[2020-06-05 02:00] VITALS: BP 119/71
[2020-06-05 04:00] VITALS: BP 150/77
[2020-06-05 05:48] VITALS: BP 125/67
[2020-06-05 06:24] LABS: ANION GAP 9 (6-22 (CALC)); BUN 15 mg/dL (7-17); BUN/CREATININE RATIO 22 (12-20 (CALC)); CARBON DIOXIDE 28 mmol/l (22-30); CHLORIDE 103 mmol/l (95-108); CREATININE 0.7 mg/dL (0.5-1.0); GFR > 60 ML/MIN (>=60 (CALC)); GFR FOR AFR.AMER. > 60 ML/MIN (>=60 (CALC)); POTASSIUM 4.6 mmol/l (3.5-5.1); SODIUM 135 mmol/l (137-146)
[2020-06-05 07:24] VITALS: BP 119/65
[2020-06-05 10:30] VITALS: BP 132/80
[2020-06-05] MEDS ORDERED: METFORMIN HCL1000 MG PO (10:34)
[2020-06-05] MEDS ORDERED: JARDIANCE10 MG PO (10:34)
== END 2020-06-05 13:06 | disposition home or self-care (01) | DRG 918 ==
LOC: ED 11:12 → ED-I 13:50 → ED 14:15 → ICU 14:16
PROVIDERS: Family Medicine; Nurse Practitioner; ADMIT Internal Medicine; ATTEND Internal Medicine
PROC: 3E0234Z Introduction of Serum, Toxoid and Vaccine into Muscle, Percutaneous Approach (ICD-10-PCS; principal; 2020-06-04)
DX: T38.3X1A Poisoning by insulin and oral hypoglycemic [antidiabetic] drugs, accidental (unintentional), initial encounter (principal); E11.649 Type 2 diabetes mellitus with hypoglycemia without coma; E11.42 Type 2 diabetes mellitus with diabetic polyneuropathy; I10 Essential (primary) hypertension; K21.9 Gastro-esophageal reflux disease without esophagitis; F17.200 Nicotine dependence, unspecified, uncomplicated; Z79.4 Long term (current) use of insulin; Z23 Encounter for immunization; Z20.822 Contact with and (suspected) exposure to COVID-19
CPT/HCPCS: J1650

== ENCOUNTER 2021-05-14 18:01 | Observation (INO) | payer OTHER, MEDICAID ==
[2021-05-14] VITALS (7 sets, daily range): BP systolic 150–194; BP diastolic 85–104
[~2021-05-14] VITALS: Ht 167.6 cm; Wt 86.0 kg
[~2021-05-14 18:01] MED LIST changes: +BACLOFEN20 MG PO; +JARDIANCE10 MG PO; +LANTUS SOL100 UNIT/M SC; +LIPITOR20 M1 PO; +MAXZIDE-2537.5 MG/TA PO; +METFORMIN HCL1000 MG PO; +NOVOLIN R100 UNIT/1 SC; +PREDNISONE10 MG PO
--- NOTE | 2021-05-14 18:10 | NUR ---
PATIENT TO ROOM 13 VIA WHEELCHAIR
[2021-05-14 19:01] LABS: URINE BLOOD DIPSTICK TRACE-LYSED (NEGATIVE); URINE COLOR YELLOW; URINE GLUCOSE - DIPSTICK NEGATIVE (NEGATIVE); URINE KETONE TRACE mg/dL (NEGATIVE); URINE LEUK ESTERASE NEGATIVE (NEGATIVE); URINE PH 5.5 (4.5-8.0); URINE PROTEIN - DIPSTICK 30 mg/dL (NEG-TRACE); URINE SPECIFIC GRAVITY >=1.030; URINE UROBILINOGEN - DIPSTICK 0.2 E.U./dL (0.2)
--- NOTE | 2021-05-14 19:05 | NUR ---
TRANSITION OF CARE REPORT TO DYLON RN
[2021-05-14 19:10] LABS: URINE BILIRUBIN - DIPSTICK MODERATE (NEGATIVE); URINE NITRITE - DIPSTICK NEGATIVE (Negative)
[2021-05-14 19:12] LABS: URINE BACTERIA MODERATE hpf; URINE SQUAMOUS EPITHELIAL CELL FEW EPI/hpf (0-FEW)
[2021-05-14 19:25] LABS: HEMATOCRIT 40.8 % (37.0-47.0); HEMOGLOBIN 13.1 g/dl (12.0-16.0); IMMATURE GRANULOCYTES 0.2 % (0.0-5.0); MEAN CELL VOLUME 92.7 fL CALC (80.0-100.0); MEAN CORPUSCULAR HGB 29.8 pG CALC (26.0-32.0); MEAN CORPUSCULAR HGB CONC 32.1 g/dL CAL (32.0-36.0); NEUT# 4.79 thou/uL (2.00-7.15); RED BLOOD COUNT 4.4 mill/uL (4.20-5.60); RED CELL DISTRI WIDTH 14.3 % (11.5-15.5)
[2021-05-14 19:39] LABS: ALBUMIN 5.5 g/dL (3.2-5.0); ALKALINE PHOSPHATASE 82 u/l (38-126); BILIRUBIN, TOTAL 0.5 mg/dL (0.0-1.4); BUN 38 mg/dL (7-17); CHLORIDE 95 mmol/l (95-108); ETHYL ALCOHOL 0 mg/dl (0-30); LIPASE 94 u/l (23-300); POTASSIUM 3.7 mmol/l (3.5-5.1); SGOT/AST 20 u/l (14-36); SODIUM 137 mmol/l (137-146)
[2021-05-14 19:49] LABS: ANION GAP 26 (6-22 (CALC)); BUN/CREATININE RATIO 7 (12-20 (CALC)); CARBON DIOXIDE 20 mmol/l (22-30); GFR 8 ML/MIN (>=60 (CALC)); GFR FOR AFR.AMER. 10 ML/MIN (>=60 (CALC)); TOTAL PROTEIN 9.7 g/dL (6.3-8.2)
[2021-05-14 19:50] LABS: CREATININE 5.4 mg/dL (0.5-1.0)
[2021-05-14 20:01] LABS: ACT PARTIAL THROMBO TIME 23.6 SECONDS (20.0-32.5); PROTHROMBIN TIME 10.1 SECONDS (9.0-12.5)
--- NOTE | 2021-05-14 20:29 | NUR ---
PT HAVING ACUTE CHANGE IN MENTAL STATUS, PROVIDER NOTIFIED, PT TO CT SCAN.
--- NOTE | 2021-05-14 20:42 | NUR ---
PROVIDER AT BEDSIDE
--- NOTE | 2021-05-14 20:43 | NUR ---
NEURO STATUS IMPROVING.
--- NOTE | 2021-05-14 21:45 | NUR ---
REPORT RECEIVED FROM Justen SCHMIDT RN
--- NOTE | 2021-05-14 21:56 | NUR ---
PT TRANSPORTED TO [facility] VIA STRETCHER BY ED STAFF.
--- NOTE | 2021-05-14 22:00 | NUR ---
PT ARRIVED TO FLOOR ACCOMPANIEDN Sarah SCHMIDT.
[2021-05-15] VITALS (62 sets, daily range): BP systolic 103–189; BP diastolic 64–110
--- NOTE | 2021-05-15 00:15 | NUR ---
PATIENT ANXIOUS, YELLING OUT, THINKS PEOPLE ARE TALKING ABOUT HER. MEDICATED WITH XANAX 0.25 MG PO ORDERED FOR ANXIETY. VSS. ST ON MONITOR.
--- NOTE | 2021-05-15 03:25 | NUR ---
PATIENT UNABLE TO GET UP FROM THE TOILET AT THIS TIME. ASSIT OF 2 PROVIDED.
--- NOTE | 2021-05-15 03:35 | NUR ---
Jeferson DAVENPORT HAND ALTERATIONS TAILOR AT BEDSIDE DRAWING ABG
--- NOTE | 2021-05-15 04:10 | NUR ---
PT DOWN TO CT AT THIS TIME, GINA Joseph AT BEDSIDE.
[2021-05-15 04:29] LABS: HEMATOCRIT 38.9 % (37.0-47.0); HEMOGLOBIN 12.3 g/dl (12.0-16.0); MEAN CELL VOLUME 93.1 fL CALC (80.0-100.0); MEAN CORPUSCULAR HGB 29.4 pG CALC (26.0-32.0); MEAN CORPUSCULAR HGB CONC 31.6 g/dL CAL (32.0-36.0); RED BLOOD COUNT 4.18 mill/uL (4.20-5.60); RED CELL DISTRI WIDTH 14.2 % (11.5-15.5)
[2021-05-15 04:45] LABS: ALBUMIN 4.9 g/dL (3.2-5.0); POTASSIUM 3.6 mmol/l (3.5-5.1)
[2021-05-15 04:51] LABS: MAGNESIUM 1.6 mg/dL (1.6-2.3); TOTAL CHOLESTEROL 245 mg/dl (0-199); TOTAL TRIGLYCERIDES 107 mg/dl (30-149); VLDL CHOLESTROL 21 mg/dl (2-49 (CALC))
[2021-05-15 04:58] LABS: CALCULATED LDLCHOLESTEROL 78 mg/dL (62-129 (CALC)); CHOLESTEROL HDL RATIO 1.7 (<4.4 (CALC)); HDL CHOLESTEROL 146 mg/dL (>=40)
--- NOTE | 2021-05-15 09:00 | NUR ---
Patient is able to self turn. Patient only alert to name. patient reports no pain. Per doctor monitor urine output closely. Blood pressure elevated but not high enought for PRN medication. Patient able to swallow meds without any difficulty. Will continue to monitor.
[2021-05-15] MEDS ORDERED: JARDIANCE25 MG PO (09:50)
[2021-05-15] MEDS ORDERED: GABAPENTIN600 MG PO (09:52)
[2021-05-15] MEDS ORDERED: GABAPENTIN300 M2 PO (09:52)
[2021-05-15] MEDS ORDERED: MELOXICAM15 MG PO (09:53)
[2021-05-15] MEDS ORDERED: VITAMIN D1.25 MG PO (09:56)
[2021-05-15] MEDS ORDERED: FOLIC ACID1 M1 PO (09:57)
[2021-05-15] MEDS ORDERED: DOCUSATE SOD100 MG PO (09:58)
--- NOTE | 2021-05-15 11:00 | NUR ---
Patients spouse at bedside. Gave update on patient status. Patient is more awake about to state name and location. When asked what year we are in she doesn't respond.
--- NOTE | 2021-05-15 14:30 | NUR ---
Patient taken down to MRI with minimal assist to transfer to wheelchair. patient needs simple directions. Patient has a hard time staying awake.
--- NOTE | 2021-05-15 18:17 | NUR ---
Patient alert but still confused. Patient is eating dinner with prompts. Patient started yelling in her room like she was taking to someone that was not there. Nurse asked her who she was speaking to she stated "I don't know maybe you". Will continue to monitor.
--- NOTE | 2021-05-15 20:00 | NUR ---
PATIENT AWAKE, AT TIMES YELLS OUT. ALERT AND ORIENTED TO PERSON AND PLACE, STATES "I AM IN THE HOSPITAL IN [place]." PATIENT DISORIENTED TO TIME. FOLLOWS DIRECTIONS. NO DRIFTS NOTED IN EXTREMITIES. HG AND P/P MODERATE STRENGTH, EQUAL. FACE SYMMETRICAL. PATIENT STATES "I HEARD THEM TALKING ABOUT ME SAYING I AM WACKY." ATTEMPTED TO REASSURE PATIENT THAT THE NURSES ARE IN PATIENT ROOMS ASSESSING THEIR PATIENTS AND NO ONE IS OUT AT THE DESK TALKING. RESP NON-LABORED. BREATH SOUNDS CLEAR. IV IN LAC, SITE BENIGN, NS INFUSING AT 75 ML/HR. BURRIS CATHETER IN PLACE, DRAINING CLEAR YELOW URINE. UNDER BASTER SHOWING SR-ST. DISCUSSED PLAN OF CARE. WILL NEED TO REINFORCE ANY TEACHING. CALL QUEEN IN REACH.
--- NOTE | 2021-05-15 21:00 | NUR ---
HS BS 113. NO COVERAGE REQUIRED PER PROTOCOL. PATIENT DRANK CARTON OF APPLE JUICE.
--- NOTE | 2021-05-15 22:00 | NUR ---
PATIENT BACK AND FORTH BETWEEN BEING CALM AND RESTFUL TO YELLING OUT AND CURSING. PATIENT IS ANXIOUS, HR AND BP ELEVATED. WILL CONTINUE TO MONITOR.
[2021-05-16] VITALS (24 sets, daily range): BP systolic 140–186; BP diastolic 71–139
--- NOTE | 2021-05-16 00:15 | NUR ---
MEDICATED WITH XANAX 0.25 MG PO ORDERED FOR ANXIETY.
--- NOTE | 2021-05-16 01:00 | NUR ---
RESTING QUIETLY WITH EYES CLOSED AT THIS TIME. SR, HR 90'S, VSS. RESP NON-LABORED. IV INFUSING WITHOUT INCIDENT.
--- NOTE | 2021-05-16 02:15 | NUR ---
PATIENT HAD BRIEF PERIOD OF REST AND QUIET-NOW YELLING OUT. "I DON'T DO DRUGS." "TELL ME TO MY FACE." "I'M NOT ON ANY DAMN DRUGS." FREQUENTLY YELLING OUT "GABAPENTIN." ATTEMPTS TO CALM AND REASSURE.
--- NOTE | 2021-05-16 03:00 | NUR ---
CONTINUES TO HAVE PERIODS OF BEING ANXIOUS, AGITATED AND CONFUSED. DOZES FOR SHORT INTERVALS.
--- NOTE | 2021-05-16 04:30 | NUR ---
ASSISTED PATIENT UP TO RECLINER PER HER REQUEST. FOUND IV REMOVED BY PATIENT. NEW IV SITE STARTED X1 ATTEMPT, NS INFUSING TO NEW SITE AT 75 ML/HR.
--- NOTE | 2021-05-16 05:00 | NUR ---
PATIENT YELLING OUT "I DO NOT HAVE COVID, I AM GOING TO [place] YOU ALL." CONTINUE TO PROVIDE EMOTIONAL SUPPORT AND REASSURANCE TO PATIENT. PATIENT REQUESTS TO SPEAK WITH HER . CALL TO ROBERT. MAHONEY SPOKE WITH .
[2021-05-16 05:41] LABS: HEMOGLOBIN 12.5 g/dl (12.0-16.0); MEAN CORPUSCULAR HGB 29.6 pG CALC (26.0-32.0); MEAN CORPUSCULAR HGB CONC 32.9 g/dL CAL (32.0-36.0); NEUT# 4.36 thou/uL (2.00-7.15); RED BLOOD COUNT 4.22 mill/uL (4.20-5.60); RED CELL DISTRI WIDTH 14.3 % (11.5-15.5)
[2021-05-16 05:47] LABS: ALBUMIN 4.7 g/dL (3.2-5.0); MAGNESIUM 1.3 mg/dL (1.6-2.3); POTASSIUM 3.4 mmol/l (3.5-5.1)
[2021-05-16 05:49] LABS: CREATININE 3.4 mg/dL (0.5-1.0)
--- NOTE | 2021-05-16 06:00 | NUR ---
CONTINUES SITTING UP IN CHAIR. VSS. RESP NON-LABORED SR-ST ON MONITOR.
--- NOTE | 2021-05-16 08:00 | NUR ---
REPORT RECEIVED FROM DANNA PINEDO. PT VSS, AWAKE AND CONFUSED SITTING IN CHAIR. HAS PARANOIA, HEARING VOICES. EASILY RE-DIRECTABLE. SAFETY REVIEWED, INSTRUCTED PT TO CALL FOR ASSISTANCE, WILL CONTINUE TO MONITOR CLOSELY.
--- NOTE | 2021-05-16 09:19 | NUR ---
NEUROLGY TELE HEALTH IN WITH PATIENT AT THIS TIME.
--- NOTE | 2021-05-16 19:00 | NUR ---
REPORT RECIEVED FROM OUTGOING SHIFT. CARE-PLAN REVIEWED WITH . PATIENT ALERT AND ORIENTED APREHENSIVE AT TIME DUE TO COMPLEXITY OF CARE. PATIENT HAD SOFT BROWN STOOL SMALL AMOUNT OF BRIGHT RED BLOOD NOTED ON TOILET TISSUE. PATIENT DENIES HEMMOROIDS OR VAGINAL DISCHARGE. WILL CONTINUE TO MONITOR.
--- NOTE | 2021-05-16 20:00 | NUR ---
BURRIS CATHETER D/C PER PHYSICIAN ORDERS, TOLERATED WELL. PATIENT DENIES PAIN OR DISCOMFORT.
--- NOTE | 2021-05-16 22:00 | NUR ---
ASSISTED TO BED-SIDE COMMODE WITHOUT DIFFICULTY VOIDED 200CC CLEAR YELLOW URINE. NO HEMATURIA NOTED.
--- NOTE | 2021-05-16 23:00 | NUR ---
PATIENT AWAKE APPEAR AGITED WITH LOUD VERBAL OUTBURSTS OF LACK OF PRIVACY AND BEING WATCHED. COMPLAIN OF NOISE OF BULK SUGAR HANDLER. MEDICATED TO REDUCE ANXIETY. USED BEDSIDE COMMODE VOIDED 300 CC CLEAR YELLOW URINE.
--- NOTE | 2021-05-17 | NUR ---
IV AT LEFT WRIST OUT OF VEIN. NEW IV SITE STARTED AT LEFT HAND WITH #22 ANGIOCATH ON 1ST ATTEMPT TOLERATED WELL SITE HEALTHY.
[2021-05-17 00:35] VITALS: BP 175/98
--- NOTE | 2021-05-17 00:58 | NUR ---
RESTING QUIETLY NO ACUTE DISTRESS NOTED, POSTURE RELAXED RESPIRATIONS EVEN AND UNLABORED VSS.
[2021-05-17 01:01] VITALS: BP 137/109
--- NOTE | 2021-05-17 01:43 | NUR ---
UP TO BEDSIDE COMMODE FOR BM SMALL AMOUMT OF SOFT BROWN STOOL NOTED. PATIENT PLEASANT AND COOPERATIVE SMALL AMOUNT OF BRIGHT RED BLOOD NOTED ON TISSUE AFTER BM. DENIES PAIN OR DISCOMFORT
--- NOTE | 2021-05-17 04:28 | NUR ---
RESTING QUIETLY IN BED WITH EYES CLOSED EASILY AROUSABLE AM CARE OFFERED WITH DAILY HYGIENE PATIENT REFUSED. REQUESTING GABAPENTIN.
[2021-05-17 05:50] LABS: ALBUMIN 4.7 g/dL (3.2-5.0)
[2021-05-17 05:52] LABS: CREATININE 1.9 mg/dL (0.5-1.0); POTASSIUM 4.2 mmol/l (3.5-5.1)
--- NOTE | 2021-05-17 06:29 | NUR ---
RESTING QUIETLY NO ACUTE DISTRESS NOTED RESPIRATIONS EVEN AND UNLABORED
--- NOTE | 2021-05-17 08:00 | NUR ---
REPORT RECEIVED FROM DANNA JAMES. PT AWAKE AND ALERT. RESTING CALMLY IN BED. VSS CALL LIGHT WITHIN REACH. INSTRUCTED PT TO CALL FOR ASSISTANCE, VERBALIZES UNDERSTANDING.
--- NOTE | 2021-05-17 08:22 | NUR ---
DR. SANTOS ON PHONE WITH ORDERS TO D/C IV FLUIDS.
[2021-05-17 09:18] VITALS: BP 143/92
[2021-05-17] MEDS ORDERED: NIFEDIPINE ER30 M1 PO (09:44)
[2021-05-17] MEDS ORDERED: BACLOFEN10 MG PO (09:45)
[2021-05-17 10:00] VITALS: BP 145/91
--- NOTE | 2021-05-17 10:51 | NUR ---
PT DISCHARGED AT THIS TIME. INSTRUCTIONS PROVIDED WITH PATIENT AND SPOUSE. LAB WORK AND PAPERWORK PROVIDED. PT STABLE AT TIME OF DEPARTURE.
== END 2021-05-17 10:15 | DRG 682 ==
LOC: ED 18:01 → ED-I 20:25 → ED 20:25 → ED-I 20:45 → ED 20:54 → MS2 20:55 → ICU 05-15 04:50
PROVIDERS: Internal Medicine; Internal Medicine Nephrology; Nurse Practitioner; ADMIT Internal Medicine; ATTEND Internal Medicine
PROC: 0T9B70Z Drainage of Bladder with Drainage Device, Via Natural or Artificial Opening (ICD-10-PCS; principal; 2021-05-15)
DX: N17.0 Acute kidney failure with tubular necrosis (principal); G93.41 Metabolic encephalopathy; E87.2 Acidosis; I12.9 Hypertensive chronic kidney disease with stage 1 through stage 4 chronic kidney disease, or unspecified chronic kidney disease; E11.22 Type 2 diabetes mellitus with diabetic chronic kidney disease; N18.30 Chronic kidney disease, stage 3 unspecified; E86.9 Volume depletion, unspecified; E83.52 Hypercalcemia; E87.6 Hypokalemia; F10.10 Alcohol abuse, uncomplicated; E83.42 Hypomagnesemia; R07.9 Chest pain, unspecified; E11.40 Type 2 diabetes mellitus with diabetic neuropathy, unspecified; K21.9 Gastro-esophageal reflux disease without esophagitis; F17.200 Nicotine dependence, unspecified, uncomplicated; R82.71 Bacteriuria; M62.838 Other muscle spasm; G65.0 Sequelae of Guillain-Barre syndrome; Z79.84 Long term (current) use of oral hypoglycemic drugs; Z20.822 Contact with and (suspected) exposure to COVID-19
CPT/HCPCS: J3475

== ENCOUNTER 2021-06-03 15:26 | Emergency (ER) | payer OTHER, MEDICAID ==
[~2021-06-03] VITALS: Ht 167.6 cm; Wt 74.0 kg
[2021-06-03] VITALS (10 sets, daily range): BP systolic 123–151; BP diastolic 79–95
[~2021-06-03 15:26] MED LIST changes: +DOCUSATE SOD100 MG PO; +FOLIC ACID1 M1 PO; +GABAPENTIN300 M2 PO; +GABAPENTIN600 MG PO; +JARDIANCE25 MG PO; +MELOXICAM15 MG PO; +NIFEDIPINE ER30 M1 PO; +VITAMIN D1.25 MG PO
[2021-06-03] MEDS ORDERED: TRAMADOL HCL50 MG PO (19:49)
[2021-06-03] MEDS ORDERED: HYDROCO/APAP1 TA9 PO (20:16)
== END 2021-06-03 20:23 | disposition home or self-care (01) | DRG 563 ==
LOC: ED 15:26
PROC: 2W3RX1Z Immobilization of Left Lower Leg using Splint (ICD-10-PCS; principal; 2021-06-03)
DX: S82.62XA Displaced fracture of lateral malleolus of left fibula, initial encounter for closed fracture (principal); I10 Essential (primary) hypertension; E11.9 Type 2 diabetes mellitus without complications; F17.210 Nicotine dependence, cigarettes, uncomplicated; W18.30XA Fall on same level, unspecified, initial encounter; Y92.009 Unspecified place in unspecified non-institutional (private) residence as the place of occurrence of the external cause

== ENCOUNTER 2023-03-21 06:47 | Emergency (ER) | payer MEDICARE, MEDICAID ==
[~2023-03-21] VITALS: Ht 167.6 cm; Wt 63.0 kg
[2023-03-21] VITALS (22 sets, daily range): BP systolic 116–142; BP diastolic 62–96
[~2023-03-21 06:47] MED LIST changes: +HYDROCO/APAP1 TA9 PO
[2023-03-21] MEDS ORDERED: BACLOFEN10 MG PO (07:22)
[2023-03-21] MEDS ORDERED: LYRICA50 MG PO (07:22)
[2023-03-21 07:54] LABS: BASO% 0.7 % (0-3); EOS% 0.3 % (0-8); HEMATOCRIT 34.1 % (37.0-47.0); HEMOGLOBIN 11.2 g/dl (12.0-16.0); IMMATURE GRANULOCYTES 0.2 % (0.0-5.0); LYMPH% 10.9 % (15-41); MEAN CELL VOLUME 92.9 fL CALC (80.0-100.0); MEAN CORPUSCULAR HGB 30.5 pG CALC (26.0-32.0); MEAN CORPUSCULAR HGB CONC 32.8 g/dL CAL (32.0-36.0); NEUT# 4.7 thou/uL (2.00-7.15); NEUT% 79.9 % (42-76); RED BLOOD COUNT 3.67 mill/uL (4.20-5.60); RED CELL DISTRI WIDTH 14.3 % (11.5-15.5)
[2023-03-21 08:10] LABS: INTERNATIONAL NORMALIZED RATIO 1.1 RATIO (0.7-1.3); PROTHROMBIN TIME 10.1 SECONDS (9.0-12.5)
[2023-03-21 08:11] LABS: ALBUMIN 4.1 g/dL (3.2-5.0); ALKALINE PHOSPHATASE 104 u/l (38-126); ANION GAP 15 (6-22 (CALC)); BILIRUBIN, TOTAL 0.4 mg/dL (0.02-1.3); BUN 12 mg/dL (7-17); BUN/CREATININE RATIO 18 (12-20 (CALC)); CARBON DIOXIDE 23 mmol/l (22-30); CHLORIDE 107 mmol/l (95-108); CREATININE 0.7 mg/dL (0.5-1.0); GFR FOR AFR.AMER. > 60 ML/MIN (>=60 (CALC)); GFR OTHER RACES > 60 ML/MIN (>=60 (CALC)); SGOT/AST 116 u/l (14-36); SODIUM 141 mmol/l (137-146); TOTAL PROTEIN 7.3 g/dL (6.3-8.2)
[2023-03-21 09:25] LABS: URINE BILIRUBIN - DIPSTICK Negative (NEGATIVE); URINE GLUCOSE - DIPSTICK Negative (NEGATIVE); URINE KETONE Negative (NEGATIVE); URINE LEUK ESTERASE Negative (NEGATIVE); URINE NITRITE - DIPSTICK Negative (Negative); URINE PH 5.5 (4.5-8.0); URINE PROTEIN - DIPSTICK Negative (NEG-TRACE); URINE SPECIFIC GRAVITY <=1.005; URINE UROBILINOGEN - DIPSTICK 0.2 E.U./dL (0.2)
[2023-03-21 09:26] LABS: URINE COLOR Yellow
[2023-03-21 09:44] LABS: URINE BLOOD DIPSTICK Negative (NEGATIVE)
== END 2023-03-21 19:05 | disposition short-term general hospital (02) ==
LOC: ED 06:47 → ED-I 07:54 → ED 10:23 → ED-I 10:23 → ED 19:05
PROVIDERS: Emergency Medicine
DX: G61.0 Guillain-Barre syndrome (principal); I10 Essential (primary) hypertension; E11.40 Type 2 diabetes mellitus with diabetic neuropathy, unspecified; F17.200 Nicotine dependence, unspecified, uncomplicated; Z79.84 Long term (current) use of oral hypoglycemic drugs